=== PATIENT | male | born 1970 | race Two or more races ===

== ENCOUNTER 2017-03-24 20:45 | Emergency (ER) | payer SELFPAY ==
[2017-03-24 21:07] VITALS: BP 132/85
[2017-03-24 21:56] LABS: ACETAMINOPHEN < 2 ug/mL (10-30)
--- NOTE | 2017-03-25 04:15 | ER ---
DATE SEEN: 03/24/2017 CHIEF COMPLAINT: Psychosis. HISTORY OF PRESENT ILLNESS: This is a 46-year-old brought in by law enforcement. He showed paranoia, went to a neighbor's house, who called 911. He was originally agitated and psychotic, was given 2 mg of Versed and comes in sedated. He had taken 1 g of meth by snorting or smoking it and it is unclear at what time. REVIEW OF SYSTEMS: No fever or chills. PAST MEDICAL HISTORY: Chronic pain syndrome. PHYSICAL EXAMINATION: VITAL SIGNS: Blood pressure is normal, pulse is 97, temperature 99.5. HEAD: Normal size. EYES: Pupils are equal and reactive to light. NECK: Supple. CHEST: Clear. NEUROLOGIC: He arouses and answers questions well. IMPRESSION: Drug-induced psychosis. PLAN: We called poison board. They recommend observation for 2 hours with salicylate acetaminophen. CBC levels were negative. Urine confirmed amphetamine use. We discharged him home after 2 hours in the company of his . TIME SEEN: 2230 hours. /[id number] [place]IL[place]/ROYA
== END 2017-03-24 23:12 | disposition home or self-care (01) ==
LOC: FB.ED 20:45
DX: F15.959 Other stimulant use, unspecified with stimulant-induced psychotic disorder, unspecified (principal)
CPT/HCPCS: 36415; 80053; 80305; 85025; 99285; G0480; 99282

== ENCOUNTER 2017-12-03 05:43 | Emergency (ER) | payer MEDICAID, OTHER ==
[2017-12-03 06:14] VITALS: BP 123/76
--- NOTE | 2017-12-03 06:43 | EDM.PDOC ---
ED HPI GENERAL MEDICAL PROBLEM - General Chief Complaint: Chest Pain Stated Complaint: CHESTPAIN Time Seen by Provider: 12/03/17 06:39 Source of Information: Reports: Patient History Limitations: Reports: No Limitations - History of Present Illness INITIAL COMMENTS - FREE TEXT/NARRATIVE: 47-year-old male who complained of chest pain. Started at about 5:30 AM. His called the ambulance and brought him in. Pain was in the left arm and shoulder area; mild to moderate; improved by nitroglycerin. By the time of this exam, his pain is resolved. He had a similar episode a month ago and was admitted at [place] ,with stress test was negative,he was diagnosed with angina. Placed on PRN nitroglycerin. left chest and arm Pain Score (Numeric/FACES): 4 - Related Data Allergies Allergy/AdvReac Type Severity Reaction Status Date / Time No Known Allergies Allergy Verified 12/03/17 06:14 Home Meds: Home Meds Nitroglycerin 0.4 mg SL ASDIRECTED PRN 12/03/17 [History] Omeprazole Magnesium [Prilosec] 10 mg PO DAILY 12/03/17 [History] Past Medical History HEENT History: Reports: Impaired Vision, Other (See Below) Other HEENT History: WEARS GLASSES FOR DRIVING. Cardiovascular History: Reports: Angina Respiratory History: Reports: None Gastrointestinal History: Reports: GERD Other Gastrointestinal History: HOARSE VOICE AT PRESENT TIME. Genitourinary History: Reports: None - Past Surgical History HEENT Surgical History: Reports: Tonsillectomy Social & Family History - Family History Family Medical History: Unobtainable Cardiac: Reports: Other (See Below) Other Cardiac Family History: MOTHER OF HEART ATTACK Endocrine/Metabolic: Reports: Diabetes, type II - Tobacco Use Smoking Status *Q: Current Every Day Smoker Years of Tobacco use: 30 Packs/Tins Daily: 1 - Caffeine Use Caffeine Use: Reports: Coffee, Soda - Alcohol Use Days Per Week of Alcohol Use: 2 Number of Drinks Per Day: 6 Total Drinks Per Week: 12 - Recreational Drug Use Recreational Drug Use: Yes Recreational Drug Type: Reports: Methamphetamine ED ROS GENERAL - Review of Systems Review Of Systems: ROS reveals no pertinent complaints other than HPI. ED EXAM, GENERAL - Physical Exam Exam: See Below Exam Limited By: No Limitations General Appearance: Alert, WD/WN Ears: Normal External Exam, Normal Canal, Hearing Grossly Normal, Normal TMs Ear Exam: Bilateral Ear: Auricle Normal, Canal Normal, TM normal Nose: Normal Inspection, Normal Mucosa, No Blood Throat/Mouth: Normal Inspection, Normal Lips, Normal Teeth, Normal Gums, Normal Oropharynx, Normal Voice, No Airway Compromise Respiratory/Chest: No Respiratory Distress, Lungs Clear Cardiovascular: Normal Peripheral Pulses, Regular Rate, Rhythm, No Edema, No Gallop, No JVD, No Murmur, No Rub EKG INTERPRETATION EKG Date: 12/03/17 Rhythm: NSR [place]: Normal Course - Vital Signs Last Recorded V/S: Last Vital Signs Temp 97.9 F 12/03/17 05:43 Pulse 91 12/03/17 05:43 Resp 15 12/03/17 05:43 BP 123/76 12/03/17 05:43 Pulse Ox 97 12/03/17 05:43 - Orders/Labs/Meds Orders: Active Orders 24 hr Category Date Time Status EKG Documentation Completion [RC] ASDIRECTED Care 12/03/17 06:02 Active D-DIMER QUANTITATIVE [COAG] Stat Lab 12/03/17 06:10 Received EKG 12 Lead [EK] Routine Ther 12/03/17 06:01 Ordered Labs: Laboratory Tests 12/03/17 12/03/17 12/03/17 Range/Units 06:10 06:10 06:10 WBC 10.1 (4.5-12.0) X10-3/uL RBC 4.80 (4.30-5.75) x10(6)uL Hgb 14.4 (11.5-15.5) g/dL Hct 41.9 (30.0-51.3) % MCV 87.4 (80-96) fL MCH 30.1 (27.7-33.6) pg MCHC 34.4 (32.2-35.4) g/dL RDW 13.3 (11.5-15.5) % Plt Count 282 (125-369) X10(3)uL MPV 8.1 (7.4-10.4) fL Neut % (Auto) 60.7 (46-82) % Lymph % (Auto) 29.1 (13-37) % Worth % (Auto) 6.4 (4-12) % Eos % (Auto) 3 (1.0-5.0) % Baso % (Auto) 1 (0-2) % Neut # (Auto) 6.2 (1.6-8.3) # Lymph # (Auto) 2.9 (0.6-5.0) # Worth # (Auto) 0.6 (0.0-1.3) # Eos # (Auto) 0.3 (0.0-0.8) # Baso # (Auto) 0.1 (0.0-0.2) # Sodium 136 (135-145) mmol/L Potassium 4.3 (3.5-5.3) mmol/L Chloride 104 (100-110) mmol/L Carbon Dioxide 27 (21-32) mmol/L BUN 21 H (7-18) mg/dL Creatinine 1.0 (0.70-1.30) mg/dL Est Cr Clr Drug Dosing 87.22 mL/min Estimated GFR (MDRD) > 60 (>60) BUN/Creatinine Ratio 21.0 H (9-20) Glucose 120 H (80-116) mg/dL Calcium 8.4 L (8.6-10.2) mg/dL Total Bilirubin 0.5 (0.1-1.3) mg/dL AST 20 (5-25) IU/L ALT 30 D (12-36) U/L Alkaline Phosphatase 114 H (56-112) IU/L Troponin I < 0.017 L (<0.017-0.056) ng/mL Total Protein 7.4 (6.0-8.0) g/dL Albumin 3.7 (3.5-5.2) g/dL Globulin 3.7 g/dL Albumin/Globulin Ratio 1.0 Departure - Departure Time of Disposition: 06:56 Disposition: Home, Self-Care 01 Condition: Good Clinical Impression: Atypical chest pain Referrals: PCP,None [Primary Care Provider] - Forms: ED Department Discharge - Problem List & Annotations (1) Atypical chest pain SNOMED Code(s): 697992283 Code(s): R07.89 - OTHER CHEST PAIN Status: Acute Current Visit: Yes - Problem List Review Problem List Initiated/Reviewed/Updated: Yes - My Orders Last 24 Hours: My Active Orders 12/03/17 06:01 EKG 12 Lead [EK] Routine 12/03/17 06:02 EKG Documentation Completion [RC] ASDIRECTED 12/03/17 06:10 D-DIMER QUANTITATIVE [COAG] Stat - Assessment/Plan Last 24 Hours: My Active Orders 12/03/17 06:01 EKG 12 Lead [EK] Routine 12/03/17 06:02 EKG Documentation Completion [RC] ASDIRECTED 12/03/17 06:10 D-DIMER QUANTITATIVE [COAG] Stat Plan: Labs negative,pain free. D dimer pending. Hand over to Dr Dawson
--- NOTE | 2017-12-03 12:08 | CR ---
INDICATION: Chest pain. CHEST: An AP upright portable view of the chest was obtained 12/03/2017 - no comparisons. The heart, mediastinum, and bony thorax were unremarkable. Overlying EKG leads are noted. An active infiltrate, effusion, contusion, or pneumothorax was not identified. IMPRESSION: No active disease. MTDD
== END 2017-12-03 09:40 | disposition home or self-care (01) ==
LOC: FB.ED 05:43
DX: R07.89 Other chest pain (principal); F17.210 Nicotine dependence, cigarettes, uncomplicated
CPT/HCPCS: 36415; 71045; 80053; 84484; 85025; 85379; 93005; 99285